=== PATIENT | male | born 1970 | race Two or more races ===

== ENCOUNTER 2020-11-22 09:58 | Emergency (ER) | payer BC, OTHER ==
[~2020-11-22] VITALS: Ht 167.6 cm; Wt 86.2 kg
[2020-11-22 10:13] VITALS: BP 130/79
== END 2020-11-22 12:47 | disposition home or self-care (01) ==
LOC: ER 09:58
DX: R42 Dizziness and giddiness (principal); H65.192 Other acute nonsuppurative otitis media, left ear
CPT/HCPCS: 70450; 93005